=== PATIENT | male | born 1980 | race African-American/Black ===

== ENCOUNTER 2016-06-16 20:28 | Emergency (ER) | payer BC ==
[~2016-06-16] VITALS: Ht 188 cm; Wt 125.3 kg
[~2016-06-16 20:28] MED LIST: CELEBREX200 MG PO; DAILY VALUE1 EACH PO; HYDROCHLOROTHIA25 MG PO; NORCO 5/3251 TABLET PO; ONE-A-DAY ESSE1 EAC1 PO; Vicodin,Norco 5/325 PO; Zestoretic,Prinzide PO
[2016-06-16 21:09] LABS: MCH 29.9 PG (29.0-34.0); MCHC 34.3 G/DL (30.0-36.0); MCV 87.2 FL (86-99); PLATELET COUNT 222 K/uL (156-360); RBC DIS.WIDTH-CV 14.1 % (11.8-14.6); RBC DIS.WIDTH-SD 44.7 % (39-53); RED BLOOD COUNT 5.39 M/uL (4.00-5.50)
[2016-06-16 21:16] LABS: CHLORIDE 106 mEq/L (99-109); POTASSIUM 4.4 mEq/L (3.7-5.4); SODIUM 136 mEq/L (136-147)
[2016-06-16 21:18] LABS: GLUCOSE 85 mg/dL (70-99)
[2016-06-16 21:19] LABS: ANION GAP 9 MEQ/L (2-14)
[2016-06-16 21:22] LABS: GFR ESTIMATE (CALCULATED) > 59 mL/min/
[2016-06-16 21:23] LABS: UREA NITROGEN (BUN) 9 mg/dL (9-23)
[2016-06-16 21:30] LABS: TROP-I INTERPRETATION NEGATIVE; TROPONIN-I < 0.01 ng/mL (0.0-0.30)
[2016-06-16 22:13] LABS: D-DIMER ELISA < 0.15 mg/L FEU (< 0.57)
[2016-06-16 22:42] LABS: TROP-I INTERPRETATION NEGATIVE; TROPONIN-I < 0.01 ng/mL (0.0-0.30)
[2016-06-16 23:06] VITALS: BP 139/98
== END 2016-06-16 23:07 | disposition home or self-care (01) ==
LOC: EME 20:28
PROVIDERS: Emergency Medicine
DX: R07.9 Chest pain, unspecified (principal); K29.00 Acute gastritis without bleeding; I10 Essential (primary) hypertension; K21.9 Gastro-esophageal reflux disease without esophagitis; Z98.84 Bariatric surgery status
CPT/HCPCS: 71020; 80048; 83880; 84484; 85027; 85379; 93005; 99281; 99285

== ENCOUNTER 2016-07-08 11:55 | Inpatient (IN) | payer BC ==
[~2016-07-08] VITALS: Ht 188 cm; Wt 128.2 kg
[2016-07-08] MEDS ORDERED: PAROXETINE HCL20 MG PO (13:45)
[2016-07-08] MEDS ORDERED: LISINOPRIL10 MG PO (13:45)
[2016-07-08 14:24] LABS: HEMATOCRIT 44.6 % (38.0-50.0); MCH 29.1 PG (29.0-34.0); MCHC 33.6 G/DL (30.0-36.0); MCV 86.4 FL (86-99); MEAN PLAT.VOLUME 11.6 uM^3 (9.0-12.4); PLATELET COUNT 187 K/uL (156-360); RBC DIS.WIDTH-CV 13.6 % (11.8-14.6); RBC DIS.WIDTH-SD 42.7 % (39-53); RED BLOOD COUNT 5.16 M/uL (4.00-5.50); WHITE BLOOD COUNT 8.1 K/uL (4.1-10.2)
[2016-07-08 14:38] LABS: CHLORIDE 108 mEq/L (99-109); POTASSIUM 3.8 mEq/L (3.7-5.4); SODIUM 140 mEq/L (136-147)
[2016-07-08 14:40] LABS: GLUCOSE 77 mg/dL (70-99)
[2016-07-08 14:41] LABS: ANION GAP 9 MEQ/L (2-14)
[2016-07-08 14:42] LABS: TOTAL BILIRUBIN 0.6 mg/dL (0.0-1.0)
[2016-07-08 14:43] LABS: SERUM ETHYL ALCOHOL < 10 mg/dL
[2016-07-08 14:44] LABS: ALKALINE PHOSPHATASE 68 IU/L (3-129); GFR ESTIMATE (CALCULATED) > 59 mL/min/
[2016-07-08 14:45] LABS: UREA NITROGEN (BUN) 6 mg/dL (9-23)
[2016-07-08 14:47] LABS: ADD MIUA? NO; BILIRUBIN NEGATIVE; BLOOD NEGATIVE; COLOR YELLOW ((YELLOW)); GLUCOSE (STRIP) NEGATIVE; KETONES NEGATIVE; LEUKOCYTES NEGATIVE; NITRITE NEGATIVE; PROTEIN (STRIP) NEGATIVE; SPECIFIC GRAVITY 1.015 (1.000-1.030)
[2016-07-08 15:06] LABS: AMPHETAMINE NEGATIVE (500 ng/mL); BARBITURATES NEGATIVE (200 ng/mL); BENZODIAZEPINES NEGATIVE (150 ng/mL); COCAINE NEGATIVE (150 ng/mL); INTERNAL CONTROLS VALID? YES; METHADONE NEGATIVE (200 ng/mL); METHAMPHETAMINE NEGATIVE (500 ng/mL); OPIATES (MORPHINE) NEGATIVE (100 ng/mL); OXYCODONE NEGATIVE (100 ng/mL); PHENCYCLIDINE NEGATIVE (25 ng/mL); PROPOXYPHENE NEGATIVE (300 ng/mL); THC CANNABINOIDS NEGATIVE (50 ng/mL); TRICYCLIC ANTIDEPRESSANTS NEGATIVE (300 ng/mL)
[2016-07-08] MEDS ORDERED: LORAZEPAM0.5 MG PO (15:54)
[2016-07-08] MEDS ORDERED: MULTI-VITAMIN1 EAC4 PO (15:55)
[2016-07-08 17:24] VITALS: BP 142/98
[2016-07-08 17:30] VITALS: BP 142/98
[2016-07-09 07:28] VITALS: BP 158/103
[2016-07-09 15:30] VITALS: BP 129/64
[2016-07-10 07:39] VITALS: BP 124/73
[2016-07-10] MEDS ORDERED: BUSPAR10 MG PO (10:15)
[2016-07-10] MEDS ORDERED: PAROXETINE HCL20 MG PO (10:15)
[2016-07-10] MEDS ORDERED: ATARAX,VISTARIL25 MG PO (10:17)
== END 2016-07-10 13:14 | disposition home or self-care (01) | DRG 881 ==
LOC: EME 11:55 → 1WEST 15:38 → EDOF 15:38 → 1WEST 17:19
PROVIDERS: Emergency Medicine
DX: F32.9 Major depressive disorder, single episode, unspecified (principal); R45.851 Suicidal ideations; I10 Essential (primary) hypertension; Z98.84 Bariatric surgery status; F41.9 Anxiety disorder, unspecified; Z91.5 Personal history of self-harm
CPT/HCPCS: 80053; 81003; 85027; 90839; 99281; 99285; G0480

== ENCOUNTER 2016-08-17 12:29 | Emergency (ER) | payer BC ==
[~2016-08-17] VITALS: Ht 188 cm; Wt 127.2 kg
[~2016-08-17 12:29] MED LIST changes: +ATARAX,VISTARIL25 MG PO; +BUSPAR10 MG PO; +LISINOPRIL10 MG PO; +LORAZEPAM0.5 MG PO; +MULTI-VITAMIN1 EAC4 PO; +PAROXETINE HCL20 MG PO
[2016-08-17 13:23] LABS: HEMATOCRIT 44.5 % (38.0-50.0); MCH 28.9 PG (29.0-34.0); MCV 87.6 FL (86-99); MEAN PLAT.VOLUME 12.3 uM^3 (9.0-12.4); PLATELET COUNT 157 K/uL (156-360); RBC DIS.WIDTH-CV 13.8 % (11.8-14.6); RBC DIS.WIDTH-SD 44.1 % (39-53); RED BLOOD COUNT 5.08 M/uL (4.00-5.50); WHITE BLOOD COUNT 8.7 K/uL (4.1-10.2)
[2016-08-17 13:56] LABS: TROP-I INTERPRETATION NEGATIVE; TROPONIN-I < 0.01 ng/mL (0.0-0.30)
[2016-08-17 14:10] LABS: CHLORIDE 108 mEq/L (99-109); POTASSIUM 4.1 mEq/L (3.7-5.4); SODIUM 140 mEq/L (136-147)
[2016-08-17 14:11] LABS: GLUCOSE 58 mg/dL (70-99)
[2016-08-17 14:13] LABS: ANION GAP 8 MEQ/L (2-14)
[2016-08-17 14:15] LABS: GFR ESTIMATE (CALCULATED) > 59 mL/min/
[2016-08-17 14:16] LABS: UREA NITROGEN (BUN) 6 mg/dL (9-23)
[2016-08-17 15:21] LABS: D-DIMER ELISA 0.75 mg/L FEU (< 0.57); PROTHROMBIN TIME 10.2 (9.2-11.2); PTT 26.2 (25-32)
[2016-08-17 15:26] LABS: TROP-I INTERPRETATION NEGATIVE; TROPONIN-I < 0.01 ng/mL (0.0-0.30)
[2016-08-17 19:13] VITALS: BP 134/77
== END 2016-08-17 19:14 | disposition home or self-care (01) ==
LOC: RME 12:29 → EME 12:29 → RME 19:14
PROVIDERS: Nurse Practitioner Family
DX: R07.89 Other chest pain (principal); R06.02 Shortness of breath; I10 Essential (primary) hypertension; Z98.84 Bariatric surgery status; Z86.711 Personal history of pulmonary embolism
CPT/HCPCS: 71020; 71275; 80048; 84484; 85027; 85379; 85610; 85730; 93005; 99281; 99285; J1200; J1885; J2405

== ENCOUNTER 2016-10-11 23:08 | Observation (INO) | payer OTHER ==
[~2016-10-11] VITALS: Ht 188 cm; Wt 126.1 kg
[2016-10-11 23:49] LABS: HEMATOCRIT 40.8 % (38.0-50.0); MCHC 33.8 G/DL (30.0-36.0); MCV 85.7 FL (86-99); MEAN PLAT.VOLUME 11.2 uM^3 (9.0-12.4); PLATELET COUNT 241 K/uL (156-360); RBC DIS.WIDTH-SD 43.4 % (39-53); RED BLOOD COUNT 4.76 M/uL (4.00-5.50); WHITE BLOOD COUNT 7.7 K/uL (4.1-10.2)
[2016-10-12 00:04] LABS: CHLORIDE 108 mEq/L (99-109); POTASSIUM 3.8 mEq/L (3.7-5.4); SODIUM 139 mEq/L (136-147)
[2016-10-12 00:06] LABS: GLUCOSE 80 mg/dL (70-99)
[2016-10-12 00:07] LABS: ANION GAP 9 MEQ/L (2-14)
[2016-10-12 00:08] LABS: TOTAL BILIRUBIN 0.3 mg/dL (0.0-1.0)
[2016-10-12 00:09] LABS: ALKALINE PHOSPHATASE 98 IU/L (3-129)
[2016-10-12 00:10] LABS: GFR ESTIMATE (CALCULATED) > 59 mL/min/
[2016-10-12 00:11] LABS: UREA NITROGEN (BUN) 7 mg/dL (9-23)
[2016-10-12 00:12] LABS: TROP-I INTERPRETATION NEGATIVE; TROPONIN-I < 0.01 ng/mL (0.0-0.30)
[2016-10-12 03:00] LABS: TROP-I INTERPRETATION NEGATIVE; TROPONIN-I < 0.01 ng/mL (0.0-0.30)
[2016-10-12 04:35] VITALS: BP 143/93
[2016-10-12 08:30] VITALS: BP 135/80
[2016-10-12 09:22] LABS: HDL CHOLESTEROL 32 MG/DL (Desirable>=40); LDL CHOLESTEROL 22 mg/dL (Desirable<100); NON-HDL CHOLESTEROL 42 mg/dL (Desirable<160); TOTAL CHOLESTEROL 74 mg/dL (Desirable<200); TRIGLYCERIDES 101 MG/DL (Normal: <150)
[2016-10-12 09:38] LABS: TROP-I INTERPRETATION NEGATIVE; TROPONIN-I < 0.01 ng/mL (0.0-0.30)
[2016-10-12] MEDS ORDERED: LOPRESSOR25 MG PO (09:57)
[2016-10-12] MEDS ORDERED: PROTONIX40 MG PO (09:58)
== END 2016-10-12 10:56 | disposition home or self-care (01) ==
LOC: EME 23:08 → EDOF 10-12 03:29 → ENRESERV 10-12 03:30 → 5WEST 10-12 04:11
PROVIDERS: Physician Assistant; Physician Assistant Medical
DX: K21.0 Gastro-esophageal reflux disease with esophagitis (principal); R07.9 Chest pain, unspecified; R55 Syncope and collapse; R42 Dizziness and giddiness; I10 Essential (primary) hypertension; F32.9 Major depressive disorder, single episode, unspecified; Z98.84 Bariatric surgery status; Z86.711 Personal history of pulmonary embolism; Z91.5 Personal history of self-harm; E66.9 Obesity, unspecified; Z68.35 Body mass index [BMI] 35.0-35.9, adult
CPT/HCPCS: 71020; 71275; 80053; 80061; 84484; 85027; 93005; 99281; 99285; G0378; J1650; J1885; J2270; J2405; J7030

== ENCOUNTER 2017-08-11 08:37 | Emergency (ER) | payer OTHER ==
[~2017-08-11] VITALS: Ht 188 cm; Wt 125.9 kg
[~2017-08-11 08:37] MED LIST changes: +LOPRESSOR25 MG PO; +PROTONIX40 MG PO
[2017-08-11 09:26] LABS: HEMATOCRIT 43.7 % (38.0-50.0); HEMOGLOBIN 14.9 G/DL (12.5-16.6); MCH 28.9 PG (29.0-34.0); MCHC 34.1 G/DL (30.0-36.0); MCV 84.9 FL (86-99); RBC DIS.WIDTH-CV 14.1 % (11.8-14.6); RBC DIS.WIDTH-SD 43.4 % (39-53); RED BLOOD COUNT 5.15 M/uL (4.00-5.50); WHITE BLOOD COUNT 4.7 K/uL (4.1-10.2)
[2017-08-11 09:35] LABS: ALBUMIN 4.3 g/dL (3.2-4.8)
[2017-08-11 09:36] LABS: CHLORIDE 107 mEq/L (99-109); POTASSIUM 3.6 mEq/L (3.7-5.4); SODIUM 137 mEq/L (136-147)
[2017-08-11 09:38] LABS: GLUCOSE 177 mg/dL (70-99); TOTAL PROTEIN 7.4 g/dL (6.4-8.3)
[2017-08-11 09:40] LABS: TOTAL BILIRUBIN 0.5 mg/dL (0.0-1.0)
[2017-08-11 09:41] LABS: ALKALINE PHOSPHATASE 98 IU/L (3-129)
[2017-08-11 09:42] LABS: CREATININE 0.9 mg/dL (0.6-1.3); GFR ESTIMATE (CALCULATED) > 59 mL/min/ (58.99-99999)
[2017-08-11 09:43] LABS: AST (GOT) 24 IU/L (2-34); UREA NITROGEN (BUN) 7 mg/dL (9-23)
[2017-08-11 09:44] LABS: ALT (GPT) 14 IU/L (3-49)
[2017-08-11 09:45] LABS: LIPASE 33 U/L (1.0-51.0)
[2017-08-11 10:12] LABS: PLATELET COUNT 145 K/uL (156-360)
[2017-08-11] MEDS ORDERED: BENTYL10 MG PO (13:17)
[2017-08-11] MEDS ORDERED: DELTASONE20 M1 PO (13:17)
[2017-08-11] MEDS ORDERED: FLAGYL500 MG PO (13:17)
[2017-08-11 14:05] VITALS: BP 148/88
== END 2017-08-11 14:05 | disposition home or self-care (01) ==
LOC: EME 08:37
PROVIDERS: Physician Assistant
DX: K52.9 Noninfective gastroenteritis and colitis, unspecified (principal); F32.9 Major depressive disorder, single episode, unspecified; I10 Essential (primary) hypertension; Z98.84 Bariatric surgery status
CPT/HCPCS: 74177; 80053; 81003; 83605; 83690; 85027; 87040; 99281; 99285; J2405; J2930; J3010; J7030

== ENCOUNTER 2017-09-23 10:30 | Emergency (ER) | payer OTHER ==
[~2017-09-23] VITALS: Ht 188 cm; Wt 129.1 kg
[~2017-09-23 10:30] MED LIST changes: +BENTYL10 MG PO; +DELTASONE20 M1 PO; +FLAGYL500 MG PO
[2017-09-23 10:40] VITALS: BP 140/101
[2017-09-23 11:05] LABS: HEMATOCRIT 41.5 % (38.0-50.0); HEMOGLOBIN 14.2 G/DL (12.5-16.6); MCH 29.6 PG (29.0-34.0); MCHC 34.2 G/DL (30.0-36.0); MCV 86.5 FL (86-99); PLATELET COUNT 160 K/uL (156-360); RBC DIS.WIDTH-CV 14.1 % (11.8-14.6); RBC DIS.WIDTH-SD 44.7 % (39-53); WHITE BLOOD COUNT 6.5 K/uL (4.1-10.2)
[2017-09-23 11:22] LABS: CHLORIDE 106 mEq/L (99-109); POTASSIUM 3.8 mEq/L (3.7-5.4); SODIUM 139 mEq/L (136-147)
[2017-09-23 11:24] LABS: GLUCOSE 186 mg/dL (70-99); TOTAL PROTEIN 7.2 g/dL (6.4-8.3)
[2017-09-23 11:26] LABS: TOTAL BILIRUBIN 0.5 mg/dL (0.0-1.0)
[2017-09-23 11:27] LABS: ALKALINE PHOSPHATASE 80 IU/L (3-129)
[2017-09-23 11:28] LABS: CREATININE 0.9 mg/dL (0.6-1.3); GFR ESTIMATE (CALCULATED) > 59 mL/min/ (58.99-99999)
[2017-09-23 11:29] LABS: AST (GOT) 19 IU/L (2-34); UREA NITROGEN (BUN) 7 mg/dL (9-23)
[2017-09-23 11:30] LABS: ALT (GPT) 14 IU/L (3-49)
== END 2017-09-23 14:28 | disposition home or self-care (01) ==
LOC: EME 10:30
DX: R10.9 Unspecified abdominal pain (principal); Z53.21 Procedure and treatment not carried out due to patient leaving prior to being seen by health care provider
CPT/HCPCS: 80053; 81003; 85027